=== PATIENT | male | born 1980 | race Caucasian/White ===

== ENCOUNTER 2022-08-13 12:48 | Emergency (ER) | payer SELFPAY ==
[~2022-08-13] VITALS: Ht 190.5 cm; Wt 104.3 kg
--- NOTE | 2022-08-13 12:51 | NUR ---
PATIENT BIBA TO BED 5.
[2022-08-13 12:52] VITALS: BP 143/84
--- NOTE | 2022-08-13 12:56 | NUR ---
Patient arrived to ED 5 for c/o seizure. BIBA [facility] for witnessed seizure on side walk for 15-20 seconds. Ambulance arrived to scene and patient was found to be postictal and responsive to verbal stimuli. Patient responsive at the moment. Dr. Campbell at bedside to MSE patient. Will continue to monitor.
[2022-08-13 12:58] VITALS: BP 132/82
[2022-08-13] MEDS ORDERED: LORazepam 2 MG/ML VIAL IVP ONE (13:00)
[2022-08-13] MEDS ORDERED: levETIRAcetam 1,000 MG in NACL 0.9% 100 ML IV ONE (13:00)
[2022-08-13] MEDS ORDERED: NACL 0.9% 1,000 ML IV ONE (13:00)
--- NOTE | 2022-08-13 13:29 | NUR ---
Patient went to and came back from CT.
[2022-08-13 13:41] LABS: ANION GAP 16.2 (8-16); CARBON DIOXIDE 23.6 mmol/L (21-32); CREATININE 1.1 mg/dL (0.6-1.3); POTASSIUM 3.8 mmol/L (3.5-5.1)
[2022-08-13 14:08] LABS: BASOPHILS # (AUTO) 0.1 K/uL (0.00-0.22); BASOPHILS % (AUTO) 0.5 % (0.0-2.0); EOSINOPHILS % (AUTO) 0.4 % (0.0-4.0); HEMATOCRIT 39.4 % (36-52); HEMOGLOBIN 13.3 g/dL (12.0-18.0); LYMPHOCYTES # (AUTO) 1.4 K/uL (2.0-11.5); LYMPHOCYTES % (AUTO) 13.6 % (20.5-51.1); MEAN CORPUSCULAR HEMOGLOBIN 32 pg (27-31); MEAN CORPUSCULAR HGB CONC 34 g/dL (33-37); MEAN CORPUSCULAR VOLUME 93.4 fL (80-94); MONOCYTES % (AUTO) 9.3 % (1.7-9.3); NEUTROPHILS # (AUTO) 7.9 K/uL (1.8-7.7); NEUTROPHILS % (AUTO) 76.2 % (42.2-75.2); PLATELET COUNT (AUTO) 182 K/uL (140-450); RED BLOOD CELL COUNT(AUTO) 4.22 MIL/uL (4.20-6.10); RED CELL DISTRIBUTION WIDTH 12.7 % (11.6-13.7); WHITE BLOOD COUNT (AUTO) 10.4 K/uL (4.8-10.8)
[2022-08-13] MEDS ORDERED: KEP500 PO (14:28)
--- NOTE | 2022-08-13 16:40 | NUR ---
PT. WAS D/C HOME WITH HIS EX-. SHE DROVE TO HOSPITAL TO [employer] PT. PT. LEFT HIS BICYCLE HERE IN THE HOSPITAL IN STORAGE. PT. WAS INSTRUCTED TO PICK IT UP SOON POSSIBLE.
--- NOTE | 2022-08-13 16:40 | NUR ---
Patient discharged with v/s stable. Written and verbal after care instructions given. Patient alert, oriented and verbalized understanding of instructions. Ambulatory with steady gait. All questions addressed prior to discharge. ID band removed. Patient advised to follow up with PMD. Rx of QIANA given. Opportunity to ask questions provided and answered.
--- NOTE | 2022-08-14 08:30 | NUR ---
[facility]V RE-EXAMINATION FORM GIVEN TO AIMEE, [employer]PER[employer] FOR MAILING
--- NOTE | 2022-08-14 09:36 | NUR ---
SPOKE WITH PT.'S MOTHER KARINA [phone]. THEY WILL CONCRETE TECHNICIAN PT.'S BICYCLE LATER TODAY. THEY ARE AWARE.
--- NOTE | 2022-08-14 10:42 | NUR ---
PT.'S FATHER JUDIE ALTAMIRANO PICKED UP PT.'S BICYCLE INTACT FROM [employer]. PT.'S FATHER ALSO INSTRUCTED THAT PT. CAN NOT DRIVE OR OPERATE ANY HEAVY EQUIPMENT.
== END 2022-08-13 16:56 | disposition home or self-care (01) ==
LOC: MED 12:48
DX: S09.90XA Unspecified injury of head, initial encounter (principal); R56.9 Unspecified convulsions; V19.88XA Pedal cyclist (driver) (passenger) injured in other specified transport accidents, initial encounter; Y93.89 Activity, other specified; Y92.89 Other specified places as the place of occurrence of the external cause; Y99.8 Other external cause status
CPT/HCPCS: 36415; 70450; 71045; 80048; 85025; 93005; 96365; 96375; 99285; J1953; J2060; Q0092; J7030